=== PATIENT | female | born 1945 | race Caucasian/White ===

== ENCOUNTER 2018-02-11 02:28 | Emergency (ER) | payer MEDICARE ==
[~2018-02-11] VITALS: Ht 170.2 cm; Wt 65.9 kg
[2018-02-11] MEDS ORDERED: LIDOCAINE 1%/EPI 1:100,000 10 ML VIAL IJ ONE (03:15)
[2018-02-11] MEDS ORDERED: TETANUS, DIPHTHERIA, PERTUSSIS VAC/PF 0.5ML (>7YR OLD) IM ONE (03:15)
[2018-02-11] MEDS ORDERED: BACITRACIN ZINC OINT UDPKT TOP ONE (04:30)
[2018-02-11 05:06] VITALS: BP 105/54
== END 2018-02-11 05:08 | disposition home or self-care (01) ==
LOC: ER 02:28
DX: S00.01XA Abrasion of scalp, initial encounter (principal); F10.129 Alcohol abuse with intoxication, unspecified; R11.0 Nausea; I10 Essential (primary) hypertension; W18.39XA Other fall on same level, initial encounter; Y93.89 Activity, other specified; Y92.89 Other specified places as the place of occurrence of the external cause; Y90.9 Presence of alcohol in blood, level not specified; Z88.6 Allergy status to analgesic agent; Y99.8 Other external cause status
CPT/HCPCS: 70450; 72125; 90471; 90715; 99284; J3490

== ENCOUNTER 2020-12-05 14:39 | Emergency (ER) | payer MEDICARE ==
[~2020-12-05] VITALS: Ht 165.1 cm; Wt 60.0 kg
[2020-12-05 16:21] LABS: BASOPHILS % 0.7 % (0.0-2.0); EOSINOPHILS % 0.2 % (0.0-5.0); HEMATOCRIT. 48.2 % (36.0-48.0); HEMOGLOBIN. 16.2 g/dL (12.0-16.0); LYMPHOCYTES % 24.5 % (20.0-50.0); MEAN CORPUSCULAR VOLUME 95.4 fL (81.0-99.0); MEAN PLATELET VOLUME 8.8 fl (7.4-10.4); MONOCYTES % 5.4 % (2.0-8.0); NEUTROPHILS % 69.2 % (40.0-76.0); PLATELET 329 x1000/uL (130-400); RED BLOOD CELL COUNT 5.05 mill/uL (4.2-5.4); RED CELL DISTRIBUTION WIDTH 14.7 % (11.6-14.6)
[2020-12-05 16:24] LABS: CHLORIDE 100 mEq/L (98-107)
[2020-12-05] MEDS ORDERED: FENTANYL CITRATE/PF 50MCG/ML 2ML VIAL IV ONE ×2 (17:15→19:15)
[2020-12-05] MEDS ORDERED: ONDANSETRON HCL 4MG/2ML INJ IV ONE (17:15)
[2020-12-05 17:41] LABS: CLARITY URINE CLEAR (CLEAR); COLOR URINE YELLOW (YELLOW); KETONES URINE TRACE (NEGATIVE); LEUKOCYTE ESTERASE URINE NEGATIVE (NEGATIVE); NITRITE URINE NEGATIVE (NEGATIVE); OCCULT BLOOD URINE 1+ (NEGATIVE); PROTEIN URINE 1+ (NEGATIVE); SPECIFIC GRAVITY URINE 1.022 (1.005-1.030); UROBILINOGEN URINE 0.2 E.U./dL (0.2-1.0)
[2020-12-05] MEDS ORDERED: IOHEXOL-300 100 ML BOTTLE ONE (20:23)
[2020-12-05] MEDS ORDERED: ONDANSETRON HCL 4MG/2ML INJ IV STA (21:57)
[2020-12-05] MEDS ORDERED: MORPHINE SULFATE 4 MG/ML CPJ (NOT FOR IM USE) IV STA (21:57)
[2020-12-05] MEDS ORDERED: ACETAMINOPHEN 500MG TABLET PO ONE (22:00)
[2020-12-05] MEDS ORDERED: PIPERACILLIN/TAZ 3.375G PREMIX 50 ML IV NR (22:30)
[2020-12-06 00:35] VITALS: BP 142/62
== END 2020-12-06 01:49 | disposition short-term general hospital (02) ==
LOC: ER 14:39 → CANBEDREQ 23:53 → ER 12-06 01:49
DX: K85.90 Acute pancreatitis without necrosis or infection, unspecified (principal); I10 Essential (primary) hypertension; Z20.822 Contact with and (suspected) exposure to COVID-19
CPT/HCPCS: 36415; 71045; 74177; 80053; 81003; 83605; 83690; 83880; 84484; 85025; 87040; 87426; 93005; 96365; 96375; 96376; 99285; J2270; J2405; J2543; J3010; Q9967